=== PATIENT | male | born 1995 | race Caucasian/White ===

== ENCOUNTER 2016-12-03 20:13 | Emergency (ER) | payer OTHER ==
--- NOTE | ~2016-12-03 | CR72 ---
[facility]. [facility] A Service [facility] RADIOLOGY TEXT RESULTS PATIENT: KIARRA TORRES II LOCATION: SED : [birth year] UNIT #: [id number] AGE: [address]: Wojciech Klein MD SEX: M ORDER DR: [id number] [place] [address] [id number] E MR#: [id number] Acc #: [id number] NAME: KIARRA TORRES II : 1995 SEX: M STUDY DATE/TIME: 12/03/2016 20:15 UNIT: SED ROOM: STUDY DESCRIPTION: CR Chest Single View Portable Attending Physician: Wojciech Klein M.D. Ordering Physician: Wojciech Klein M.D. Primary Care Physician: Brittany Calabrese M.D. MEDICAL IMAGING REPORT This report is preliminary unless electronic signature is present. EXAM Portable chest, 12/03/2016 HISTORY 21-year-old male with cough and congestion for 1 week. Fever. Comparison chest 05/09/2012 FINDINGS 2 frontal views of the chest demonstrate clear lungs. No pleural effusion or pneumothorax. Diffuse pulmonary hyperinflation is again noted. Heart size and mediastinum within normal limits. Pulmonary vasculature unremarkable. IMPRESSION Diffuse pulmonary hyperinflation again noted. No other acute chest findings. Dictated by... Adriel Padgett M.D. THIS IS AN ELECTRONICALLY VERIFIED REPORT Adriel Padgett M.D. at 12/04/2016 4:28 PM JOHNATHON/antonio TD: 12/04/2016 01:37 JOB #: [id number] MEDICAL IMAGING REPORT [facility] A Service [facility] RADIOLOGY TEXT RESULTS PATIENT: KIARRA TORRES II LOCATION: SED : 93 UNIT #: [id number] AGE: [address]: Wojciech Klein MD SEX: M ORDER DR: Page 1 of 1
[~2016-12-03 20:13] MED LIST: ALBUTEROL17 GM INH; DULERA 100 MCG/13 GM INH
== END 2016-12-03 21:10 | disposition home or self-care (01) ==
LOC: SED 20:13
DX: J45.901 Unspecified asthma with (acute) exacerbation (principal); J20.9 Acute bronchitis, unspecified
CPT/HCPCS: 71010; 94640; 99283

== ENCOUNTER 2016-12-25 16:37 | Emergency (ER) | payer OTHER | END 2016-12-25 17:54 | disposition home or self-care (01) | LOC: SED 16:37 | DX: J45.21 Mild intermittent asthma with (acute) exacerbation (principal); J06.9 Acute upper respiratory infection, unspecified; Z91.14 Patient's other noncompliance with medication regimen | CPT/HCPCS: 94640; 99283 ==

== ENCOUNTER 2017-01-23 09:46 | Inpatient (IN) | payer OTHER ==
--- NOTE | ~2017-01-23 | DS ---
Unit #: [id number] #: [id number] Patient: KIARRA TORRES II [id number] [address] [place], [place] [address] [id number] I MR#: [id number] NAME: KIARRA TORRES II ROOM: [facility] Age: 21 Sex: M Admission Date: 01/23/2017 : 1995 Discharge Date: 01/25/2017 Attending Physician: Brittnee Harley M.D. Primary Care Physician: Brittany Calabrese M.D. DISCHARGE SUMMARY DIAGNOSES ON ADMISSION 1. Acute respiratory failure. 2. Acute flare of bronchial asthma. DIAGNOSES ON DISCHARGE 1. Acute respiratory failure, resolved. 2. Acute flare of bronchial asthma, improved. CONSULTATION Dr. Delcid in pulmonary consultation. DIAGNOSTIC STUDIES LABORATORY: Patient's creatinine was 0.9, sodium 136, potassium 4.4. AST and ALT were within normal limits. WBC 14.3, hemoglobin 14.8, platelet count 208,000. Patient is on steroids. IMAGING: Chest x-ray revealed diffuse pulmonary hyperinflation. No active pulmonary disease. HOSPITAL COURSE A 21-year-old male was admitted to [facility] with shortness of air. Details are as per admission H and P. Patient was seen by Dr. Delcid in consultation, was treated with IV Solu-Medrol and Mini neb treatment and antibiotics. Patient responded well and shortness of air has resolved. Patient initially required oxygen on admission but now he is 98% on room air, is ambulatory, and anxious to go home. PHYSICAL EXAMINATION VITAL SIGNS: Reveal temperature of 97.5, pulse 84 per minute, respiratory rate is 18 per minute, blood pressure is 136/73. HEENT: Revealed no conjunctival congestion. Sclerae is nonicteric. NECK: Supple. Trachea is central. RESPIRATORY: Revealed breath sounds equal bilaterally. No wheezes or crackles. HEART: Regular rate and rhythm. S1, S2. ABDOMEN: Soft, nontender. Bowel sounds are present in all four quadrants. NEUROLOGIC: The patient is alert to person, place and time. Power is 5/5 bilaterally. Sensations are grossly intact. SKIN: Warm and dry. RECOMMENDATIONS ON DISCHARGE Condition is stable. Activity as tolerated. Unit #: [id number] #: [id number] Patient: KIARRA TORRES II MEDICATIONS 1. Doxycycline 100 mg p.o. b.i.d. 2. Medrol Dosepak as recommended. 3. Claritin 10 mg p.o. daily. 4. Ventolin MDI two puffs q.4 hours p.r.n. 5. Combivent Mini neb treatment q.6 hours. 6. DuoNeb Mini neb treatment t.i.d. scheduled and q.4 hours p.r.n. FOLLOWUP Patient is advised to follow up with primary care physician in one week and follow up with pulmonary as recommended. Patient is very anxious and states that he wants to go home on Wednesday. He states that otherwise he will lose his job. Clinically, he is stable now. Therefore, we would have patient go back to work on Wednesday as at this point he is stable. I advised him to call his primary care physician or go to ER if his condition changes. The plan was discussed with Dr. Gilliam. Patient states that his work at [employer] does not involve chemicals and just some lifting. He was advised not to do heavy lifting for next one week. Dictated by... Logan Orourke/woodrow TD: 01/25/2017 12:47 JOB #: [id number] CC: Brittany Calabrese M.D. DISCHARGE SUMMARY Page 1 of 1 X Brittnee Harley MD X DISCHARGE SUMMARY
--- NOTE | ~2017-01-23 | HP ---
Unit #: [id number] #: [id number] Patient: KIARRA TORRES II [id number] [address] [address] [id number] E MR#: [id number] NAME: KIARRA TORRES II ROOM: Age: 21 Sex: M Admission Date: 01/23/2017 : 1995 Attending Physician: Deion Neri M.D. Primary Care Physician: Brittany Calabrese M.D. HISTORY AND PHYSICAL CHIEF COMPLAINT Short of air. HISTORY OF PRESENT ILLNESS The patient is a 21-year-old male with past medical history of asthma who presented to the emergency department for evaluation of the above. The patient states that he was in his usual state of health until 2-3 days ago when he developed increasing shortness of breath and intermittently productive cough. He denies any fever. He has had chest tightness in association with cough. He states that his appetite has been good. No vomiting or diarrhea. No urinary symptoms. He has been taking his medications as prescribed. The patient states that his asthma is triggered by stress and environmental changes. The patient's oxygen saturation was documented as 89% on room air; however, I was told that it dropped to 88 during the course of his evaluation in the emergency department. The patient received 125 mg of Solu-Medrol prior to arrival. Chest x-ray shows hyperinflation. He is being admitted to [facility] for evaluation and further treatment. PAST MEDICAL HISTORY Asthma, diagnosed as a toddler, requiring intubation at the age of 16. His last hospitalization was more than a year ago in [place], [place] (no records). 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 PAST SURGICAL HISTORY None. SOCIAL HISTORY The patient lives alone. There is no tobacco, alcohol, or illicit drug use. He works at [employer]. FAMILY HISTORY Notable for his dad having asthma. His mother of "alcohol poisoning." ALLERGIES No known allergies. MEDICATIONS Home medications include: 1. Ventolin 2 puffs q.4 hours p.r.n. Unit #: [id number] #: [id number] Patient: KIARRA TORRES II 2. Combivent q.4 hours p.r.n. 3. Claritin 10 mg daily. REVIEW OF SYSTEMS A complete review of systems is negative, except as indicated in the HPI. The patient states that he has been on Dulera in the past, but that it is "too expensive." DIAGNOSTIC STUDIES IMAGING: Chest x-ray shows hyperinflation. LABORATORY: Essentially normal. PHYSICAL EXAMINATION VITAL SIGNS: Temperature is 98.2, pulse 112, respirations 19, blood pressure 148/97, and oxygen saturation is listed as 89% on room air. It was apparently 88 per EMS. GENERAL: The patient is a male who is awake and alert in no acute distress. HEENT: The head is atraumatic. Mucous membranes are moist. NECK: Supple. Trachea is midline. CARDIOVASCULAR: Regular rate and rhythm. LUNGS: Demonstrate inspiratory and expiratory wheezes. Breathing is mildly labored to conversation. ABDOMEN: Soft and nontender with bowel sounds present in all four quadrants. EXTREMITIES: Nontender with no pedal edema. NEUROLOGIC: The patient is awake and alert. He follows commands. PSYCH: Mood and affect are normal. The patient is cooperative. SKIN: The skin of examined areas is warm and dry. ASSESSMENT The patient is a 21-year-old male with: 1. Acute respiratory failure, hypoxic. 2. Asthma exacerbation. The patient received 125 mg of Solu-Medrol prior to arrival. PLAN 1. Admit to intermediate level. 2. Regular diet. 3. Supplemental oxygen 2-4 liters to maintain saturations greater than 92%. 4. DuoNeb q.4 hours while awake and q.2 hours p.r.n. 5. Solu-Medrol 80 mg IV q.12 hours. 6. Mucinex 600 mg p.o. b.i.d. 7. Consult Dr. Delcid regarding asthma exacerbation. 8. Protonix 40 mg p.o. daily for GI prophylaxis since the patient will be on Solu-Medrol. 9. SCDs for DVT prophylaxis. 10. Repeat labs in the morning. Dictated by Logan Carney Unit #: [id number] #: [id number] Patient: KIARRA TORRES II TD: 01/23/2017 13:02 JOB #: [id number] HISTORY AND PHYSICAL Page 1 of 1 X Idalmis Villarreal MD HISTORY AND PHYSICAL
--- NOTE | ~2017-01-23 | CR72 ---
[facility] A Service of [facility] RADIOLOGY TEXT RESULTS PATIENT: KIARRA TORRES II LOCATION: [place] [address] : [birth year] UNIT #: [id number] AGE: [address]: Idalmis Villarreal MD SEX: M ORDER DR: [id number] [facility] [address]. [place], [place] [address] [id number] I MR#: [id number] #: [id number] NAME: KIARRA TORRES II : 1995 SEX: M STUDY DATE/TIME: 01/23/2017 10:10 UNIT: CEDOF ROOM: [id number] STUDY DESCRIPTION: CR Chest Single View Portable Attending Physician: Idalmis Villarreal M.D. Ordering Physician: Deion Neri M.D. Primary Care Physician: Brittany Calabrese M.D. MEDICAL IMAGING REPORT This report is preliminary unless electronic signature is present EXAM Portable chest 2 views 01/23/2017 HISTORY Shortness of breath cough and chest pain beginning today, asthma. FINDINGS The heart is normal in size. The lungs are hyperinflated but otherwise clear. There are no pleural effusions. No pneumothorax. IMPRESSION Diffuse pulmonary hyperinflation. No active pulmonary disease. Dictated by... Arthur Remy M.D. THIS IS AN ELECTRONICALLY VERIFIED REPORT Arthur Remy M.D. at 01/24/2017 6:26 AM MINO/brittany TD: 01/23/2017 15:15 JOB #: [id number] MEDICAL IMAGING REPORT Page 1 of 1 COPY
--- NOTE | ~2017-01-23 | CO ---
Unit #: [id number] #: [id number] Patient: KIARRA TORRES II [id number] [address] [address] [id number] I MR#: [id number] NAME: KIARRA TORRES II ROOM: [facility] Age: 21 Sex: M Admission Date: 01/23/2017 : 1995 Attending Physician: Brittnee Harley M.D. Primary Care Physician: Brittany Calabrese M.D. Consultation Date: 01/23/2017 CONSULTATION REPORT REASON FOR CONSULTATION Asthma exacerbation. CHIEF COMPLAINT Cough and shortness of breath HISTORY OF PRESENT ILLNESS A 21-year-old male with past medical history of asthma, poorly controlled. Presents with the complaint of cough, shortness of breath for 2-3 days, productive sputum, increased feeling of tightness in the chest and exertional dyspnea. Oxygen saturation was 89% on room air. I am seeing him at the bedside. Complaining of mild shortness of breath. Denies any nausea, vomiting, diarrhea. REVIEW OF SYSTEMS Positive pallor. No edema. No cyanosis. No jaundice. PAST MEDICAL HISTORY Asthma. PAST SURGICAL HISTORY None. SOCIAL HISTORY Nonsmoker. No alcohol. No drug abuse. Works at [employer]. FAMILY HISTORY Positive for asthma. ALLERGIES No known drug allergies. MEDICATIONS Ventolin, Combivent and Claritin. PHYSICAL EXAMINATION VITAL SIGNS: Temperature 98, pulse 110, respirations 16, blood pressure 130/70. NEUROLOGIC: Awake, alert and oriented. No neuro deficits. HEENT: PERRLA. EOMI. NECK: Supple. No JVD. CHEST: Bilateral air entry. Bilateral mild rhonchi. GI: Nontender. Soft. Bowel sounds are positive. EXTREMITIES: No edema. Unit #: [id number] #: [id number] Patient: KIARRA TORRES II SKIN: No rashes, no ulcer. LYMPHATIC: No lymphadenopathy. DIAGNOSTIC STUDIES Labs and imaging have been reviewed. ASSESSMENT 1. Acute exacerbation of asthma. 2. Acute hypoxic respiratory failure. 3. Acute bronchitis. PLAN At this point plan is to check the patient for influenza. Continue IV steroids. Start him on IV antibiotics. Serum IgE level. The patient will need long-acting beta agonist, along with inhaled corticosteroid and antimuscarinic agent, like Spiriva, on discharge. We will continue to follow. Please see orders for detailed plan. Thank you very much for this consultation. Dictated by... Raymundo Delcid M.D. Carol Ann TD: 01/24/2017 13:49 JOB #: [id number] CONSULTATION REPORT Page 1 of 1 X Raymundo Delcid MD X CONSULTATION REPORT
[2017-01-23 10:32] LABS: BASOPHIL# 0.1 X10e3 (0-0.3); BASOPHIL% 1.3 % (0-2.5); EOSINOPHIL# 0.7 X10e3 (0-0.7); EOSINOPHIL% 6.6 % (0.0-7.0); HEMATOCRIT 49.1 % (38.0-50.0); HEMOGLOBIN 16.5 gm/dL (13.0-16.0); LYMPHOCYTE# 1.8 X10e3 (1.0-3.5); LYMPHOCYTE% 17.6 % (17.0-45.0); MEAN CELL VOLUME 87.6 FL (83-96); MEAN CORPUSCULAR HEMOGLOBIN 29.5 PG (28-34); MEAN CORPUSCULAR HGB CONC 33.7 g/dL (30-36); MEAN PLATELET VOLUME 8.6 FL (6.5-11.5); MONOCYTE# 0.7 X10e3 (0-1.0); MONOCYTE% 6.8 % (3.0-12.0); NEUTROPHIL# 6.9 X10e3 (1.5-7.1); NEUTROPHIL% 67.7 % (40-75); PLATELET COUNT 185 X10e3 (140-420); RED CELL DISTRIBUTION WIDTH 13.5 % (11.0-15.5); WHITE BLOOD COUNT 10.2 X10e3 (4.0-10.5)
[2017-01-23 10:45] LABS: DIFF IND NO
[2017-01-23 10:56] LABS: BUN/CREATININE RATIO 13.33; CALCIUM SERUM 9.4 mg/dL (8.4-10.2); CREATININE SERUM 0.9 mg/dL (0.6-1.4); POTASSIUM 3.6 mmol/L (3.5-5.1)
[2017-01-23] MEDS ORDERED: ALBUTEROL17 GM INH (11:47)
[2017-01-23] MEDS ORDERED: COMBIVENT U/D3 M3 INH (11:48)
[2017-01-23] MEDS ORDERED: CLARITIN10 M3 PO (11:49)
[2017-01-24 05:22] LABS: HEMATOCRIT 45.8 % (38.0-50.0); HEMOGLOBIN 15.6 gm/dL (13.0-16.0); LYMPHOCYTE# 0.7 X10e3 (1.0-3.5); LYMPHOCYTE% 6.6 % (17.0-45.0); MEAN CELL VOLUME 87.2 FL (83-96); MEAN CORPUSCULAR HEMOGLOBIN 29.7 PG (28-34); MEAN CORPUSCULAR HGB CONC 34.1 g/dL (30-36); MONOCYTE# 0.2 X10e3 (0-1.0); MONOCYTE% 1.6 % (3.0-12.0); NEUTROPHIL# 9.5 X10e3 (1.5-7.1); NEUTROPHIL% 91.8 % (40-75); PLATELET COUNT 200 X10e3 (140-420); RED BLOOD COUNT 5.26 X10e (3.90-5.60); RED CELL DISTRIBUTION WIDTH 13.7 % (11.0-15.5); WHITE BLOOD COUNT 10.4 X10e3 (4.0-10.5)
[2017-01-24 05:51] LABS: DIFF IND NO
[2017-01-24 06:11] LABS: BUN/CREATININE RATIO 24.28; CALCIUM SERUM 9.9 mg/dL (8.4-10.2); CREATININE SERUM 0.7 mg/dL (0.6-1.4); GLOM FILT RATE Estimated 133.1 mL/min (>60)
[2017-01-25 06:34] LABS: HEMATOCRIT 44.1 % (38.0-50.0); HEMOGLOBIN 14.8 gm/dL (13.0-16.0); MEAN CELL VOLUME 87.8 FL (83-96); MEAN CORPUSCULAR HEMOGLOBIN 29.5 PG (28-34); MEAN CORPUSCULAR HGB CONC 33.6 g/dL (30-36); MEAN PLATELET VOLUME 8.7 FL (6.5-11.5); RED BLOOD COUNT 5.02 X10e (3.90-5.60); RED CELL DISTRIBUTION WIDTH 13.7 % (11.0-15.5); WHITE BLOOD COUNT 14.3 X10e3 (4.0-10.5)
[2017-01-25 07:49] LABS: ALBUMIN SERUM 4.5 g/dL (3.5-5.0); BILIRUBIN,TOTAL 0.5 mg/dL (0.2-2.0); BUN/CREATININE RATIO 26.66; CALCIUM SERUM 9.7 mg/dL (8.4-10.2); CREATININE SERUM 0.9 mg/dL (0.6-1.4); POTASSIUM 4.4 mmol/L (3.5-5.1); PROTEIN TOTAL SERUM 6.7 g/dL (6.0-8.3)
[2017-01-25] MEDS ORDERED: COMBIVENT U/D3 ML INH (13:21)
[2017-01-25] MEDS ORDERED: MEDROL DOSEPAK4 MG PO (13:22)
[2017-01-25] MEDS ORDERED: DOXYCYCLINE HY100 M3 PO (13:22)
== END 2017-01-25 13:37 | disposition home or self-care (01) | DRG 189 ==
LOC: CED 09:46 → CEDOF 13:00 → C3A PCU 13:00 → CEDOF 13:01 → CED 13:01 → C3A PCU 16:42 → CEDOF 16:42 → C3A PCU 01-24 06:49
PROVIDERS: Emergency Medicine; Family Medicine; Internal Medicine
DX: J96.01 Acute respiratory failure with hypoxia (principal); J45.901 Unspecified asthma with (acute) exacerbation; J20.9 Acute bronchitis, unspecified
CPT/HCPCS: 36415; 71010; 80048; 80053; 82785; 85025; 85027; 94640; 94760; 96360; 99285; J2930